=== PATIENT | female | born 1975 | race Caucasian/White ===

== ENCOUNTER 2023-01-11 09:06 | Outpatient (CLI) | payer OTHER, SELFPAY ==
[2023-01-11 14:58] LABS: Chloride* 106 mmol/L (96-114); Sodium* 137 mmol/L (135-149)
[2023-01-11 14:59] LABS: Potassium* 4.9 mmol/L (3.6-5.1)
[2023-01-11 15:01] LABS: Blood Urea Nitrogen* 18 mg/dL (5-24); Carbon Dioxide* 25 mmol/L (20-32); Cholesterol* 197 mg/dL (90-199); Creatinine* 0.9 mg/dL (0.5-1.5); Estimated Glomerular Filt Rate 78 ml/min
[2023-01-11 15:02] LABS: Calcium* 9.3 mg/dL (8.4-10.6); Glucose* 123 mg/dL (60-115); HDL Cholesterol* 47 mg/dL (>=50); LDL Cholesterol Calculated 116 mg/dL (<100); Triglycerides* 168 mg/dL (40-149)
== END 2023-01-11 09:07 | disposition home or self-care (01) ==
PROVIDERS: PCP Family Medicine; Visit Provider Family Medicine
DX: E13.9 Other specified diabetes mellitus without complications (principal); E78.1 Pure hyperglyceridemia; I10 Essential (primary) hypertension
CPT/HCPCS: 80048; 80061

== ENCOUNTER 2023-03-15 08:37 | Outpatient (CLI) | payer OTHER, SELFPAY ==
--- NOTE | 2023-03-15 08:45 | CRLHL7_ITS ---
For Patients: As a result of the Century Cures Act, medical imaging exams and procedure reports are released immediately into your electronic medical record. You may view this report before your referring provider. If you have questions, please contact your health care provider. BILATERAL SCREENING MAMMOGRAM WITH COMPUTER-AIDED DETECTION AND TOMOSYNTHESIS TECHNIQUE: CC and MLO views were obtained. These mammographic images have been obtained using full-field digital technique. These mammographic images were interpreted with the benefit of computer-aided detection. Breast Tomosynthesis was used in this interpretation. COMPARISON FILM: 02/02/22, 01/27/21, 07/24/20. FINDINGS: There are scattered areas of fibroglandular density IMPRESSION: There is no radiographic evidence for malignancy. ASSESSMENT: BI-RADS Category 1: Negative RECOMMENDATION: Routine screening mammogram in 1 year. A lay language report of this examination will be provided to the patient. Vinayak Galvan M.D. Diagnostic Radiologist [email or web address] PHIL/Dictated by: Vinayak Galvan MD @ 03/15/2023 10:58:00 AM (Electronically Signed)
== END 2023-03-15 08:38 | disposition home or self-care (01) ==
LOC: MAMMO 08:37
PROVIDERS: PCP Family Medicine; Visit Provider Family Medicine
DX: Z12.31 Encounter for screening mammogram for malignant neoplasm of breast (principal)
CPT/HCPCS: 77063; 77067

== ENCOUNTER 2024-03-17 09:39 | Outpatient (CLI) | payer OTHER, SELFPAY | END 2024-03-17 09:40 | disposition home or self-care (01) | PROVIDERS: PCP Family Medicine; Visit Provider Family Medicine | DX: E78.1 Pure hyperglyceridemia (principal); I10 Essential (primary) hypertension | CPT/HCPCS: 80048; 80061 ==

== ENCOUNTER 2024-05-03 17:07 | Outpatient (CLI) | payer OTHER, SELFPAY | END 2024-05-03 17:08 | disposition home or self-care (01) | LOC: NFLDREF 05-11 11:46 | PROVIDERS: PCP Family Medicine; Referring Provider Family Medicine; Visit Provider Nurse Practitioner Family | DX: N30.01 Acute cystitis with hematuria (principal); B96.20 Unspecified Escherichia coli [E. coli] as the cause of diseases classified elsewhere | CPT/HCPCS: 87086; 87186 ==

== ENCOUNTER 2024-05-15 11:58 | Outpatient (CLI) | payer OTHER, SELFPAY | END 2024-05-15 11:59 | disposition home or self-care (01) | LOC: NFLDREF 05-17 12:00 | PROVIDERS: PCP Family Medicine; Referring Provider Family Medicine; Visit Provider Physician Assistant | DX: N39.0 Urinary tract infection, site not specified (principal) | CPT/HCPCS: 87086 ==

== ENCOUNTER 2024-06-12 13:09 | Outpatient (CLI) | payer OTHER, SELFPAY ==
--- NOTE | 2024-06-12 13:20 | CRLHL7_ITS ---
For Patients: As a result of the Century Cures Act, medical imaging exams and procedure reports are released immediately into your electronic medical record. You may view this report before your referring provider. If you have questions, please contact your health care provider. BILATERAL DIGITAL SCREENING MAMMOGRAM WITH COMPUTER-AIDED DETECTION AND TOMOSYNTHESIS CLINICAL HISTORY: Routine screening exam. COMPARISON: 03/15/2023, 02/02/2022, 01/27/2021. TECHNIQUE: Digital mammogram in CC and MLO projections including computer-aided detection (CAD). Tomosynthesis was used in this interpretation. BREAST COMPOSITION: There are scattered areas of fibroglandular density. FINDINGS: RIGHT Breast: No suspicious findings. LEFT Breast: Focal asymmetric density lower inner quadrant 6 cm from the nipple. IMPRESSION: LEFT breast asymmetry/mass. RECOMMENDATIONS: Additional mammographic views of the LEFT breast including 3D spot compression CC/MLO. LEFT breast ultrasound may also be required. BI-RADS Category 0: Incomplete: Need Additional Imaging Evaluation and/or Prior Mammograms for Comparison. [facility] will contact the patient for follow-up. A lay language report of this examination will be provided to the patient. Dictated by Vinayak Galvan MD @ 06/13/2024 9:49:32 AM jj/Dictated by: Vinayak Galvan MD @ 06/13/2024 9:49:00 AM (Electronically Signed)
== END 2024-06-12 13:10 | disposition home or self-care (01) ==
LOC: MAMMO 13:09
PROVIDERS: PCP Family Medicine; Visit Provider Family Medicine
DX: Z12.31 Encounter for screening mammogram for malignant neoplasm of breast (principal); N63.20 Unspecified lump in the left breast, unspecified quadrant; Z80.3 Family history of malignant neoplasm of breast
CPT/HCPCS: 77063; 77067

== ENCOUNTER 2024-06-26 07:41 | Outpatient (CLI) | payer OTHER, SELFPAY ==
--- NOTE | 2024-06-26 07:45 | CRLHL7_ITS ---
For Patients: As a result of the Cures Act, medical imaging exams and procedure reports are released immediately into your electronic medical record. You may view this report before your referring provider. If you have questions, please contact your health care provider. DIGITAL LEFT BREAST MAMMOGRAM USING TOMOSYNTHESIS AND COMPUTER-AIDED DETECTION LEFT BREAST ULTRASOUND CLINICAL HISTORY: LEFT breast mass/asymmetry. COMPARISON: 06/12/2024. TECHNIQUE: Digital LEFT mammogram in two projections. Tomosynthesis and computer-aided detection were used in this interpretation. Real-time ultrasound imaging of LEFT breast with imaging documentation. BREAST COMPOSITION: There are scattered areas of fibroglandular density. FINDINGS: 3D spot compression CC/MLO LEFT breast mammogram images submitted. Persistent nodular density in the retroareolar plane, 5 o`clock, mid depth. No architectural distortion or suspicious calcifications. Targeted LEFT breast ultrasound performed. At 5 o`clock 1 cm from the nipple retroareolar plane mid depth, there is a circumscribed lymph node measuring 4 x 3 x 4 mm. No abnormal vascularity. No shadowing lesion. No fibrocystic change. IMPRESSION: Benign intramammary lymph node measuring 4 mm LEFT breast 5 o`clock 1 cm from the nipple retroareolar plane. No evidence of malignancy. RECOMMENDATIONS: Annual bilateral screening mammogram. BI-RADS: 2. Benign. A lay language report of this examination will be provided to the patient. Dictated by Vinayak Galvan MD @ 06/26/2024 9:21:13 AM /narcisa/pal SP/Dictated by: iVnayak Galvan MD @ 06/26/2024 9:21:00 AM (Electronically Signed)
--- NOTE | 2024-06-26 08:15 | CRLHL7_ITS ---
For Patients: As a result of the Century Cures Act, medical imaging exams and procedure reports are released immediately into your electronic medical record. You may view this report before your referring provider. If you have questions, please contact your health care provider. PLEASE SEE LEFT BREAST DIAGNOSTIC MAMMOGRAM OF SAME DAY. CRL:narcisa/pal SP/Dictated by: Vinayak Galvan MD @ 06/26/2024 9:21:00 AM (Electronically Signed)
== END 2024-06-26 07:42 | disposition home or self-care (01) ==
LOC: MAMMO 07:42
PROVIDERS: PCP Family Medicine; Visit Provider Family Medicine
DX: N63.20 Unspecified lump in the left breast, unspecified quadrant (principal); R92.8 Other abnormal and inconclusive findings on diagnostic imaging of breast
CPT/HCPCS: 76642; 77065; G0279

== ENCOUNTER 2025-04-13 08:54 | Outpatient (CLI) | payer OTHER, SELFPAY ==
[2025-04-14 21:20] LABS: HPV Source Cervix; HPV, High Risk by TMA Not Detected
== END 2025-04-13 08:55 | disposition home or self-care (01) ==
PROVIDERS: PCP Family Medicine; Visit Provider Family Medicine
DX: E78.1 Pure hyperglyceridemia (principal); E13.65 Other specified diabetes mellitus with hyperglycemia; I10 Essential (primary) hypertension; Z79.85 Long-term (current) use of injectable non-insulin antidiabetic drugs; Z12.4 Encounter for screening for malignant neoplasm of cervix; Z11.51 Encounter for screening for human papillomavirus (HPV)
CPT/HCPCS: 80053; 80061; 84681; 87624; 87625; 88141; 88142